=== PATIENT | female | born 1945 | race Caucasian/White ===

== ENCOUNTER 2021-05-18 11:09 | Outpatient (REF) | payer MEDICARE, SELFPAY ==
--- NOTE | ~2021-05-18 | XR_ITS ---
EXAMINATION: XR KNEE, LEFT CLINICAL INFORMATION: Left knee pain. COMPARISON: 07/20/2016 left knee radiographs TECHNIQUE: Four views of the left knee. FINDINGS: Mild medial femoral-tibial and patellofemoral joint space narrowing is seen. There is no acute fracture, dislocation or joint effusion. Mild prepatellar soft tissue swelling is seen. XR/XR knee LT 4V IMPRESSION: Mild degenerative joint changes are similar to the previous study suggesting osteoarthritis. Mild prepatellar soft tissue swelling may be normal for the patient or could be traumatic. Correlate with physical exam.
[2021-05-18 12:14] LABS: MANUAL DIFF FLAG NO
[2021-05-18 12:19] LABS: Basophils Percent Auto 0.5 % (0-2); Eosinophils Absolute Auto 0.2 X10*3/uL (0.0-0.4); Eosinophils Percent Auto 3.3 % (0-4); Hematocrit 40.7 % (37-47); Imm Gran Abs Auto 0.03 X10*3/uL (0.00-0.03); Imm Gran Pct Auto 0.5 % (0.0-0.4); Lymphocytes Absolute Auto 1.3 X10*3/uL (1.2-4.9); Lymphocytes Percent Auto 21.7 % (20-40); Mean Corpuscular HGB Conc 31.9 g/dl (31.0-35.0); Mean Corpuscular Hemoglobin 28.4 pg (27.0-33.0); Mean Corpuscular Volume 88.9 fL (80-98); Mean Platelet Volume 10.2 fL (9.4-12.3); Monocytes Absolute Auto 0.7 X10*3/uL (0.1-1.2); Monocytes Percent Auto 11.2 % (2-11); Neutrophils Absolute Auto 3.6 X10*3/uL (2.0-8.3); Neutrophils Percent Auto 62.8 % (45-73); Platelet Count 206 X10*3/uL (160-400); Red Blood Count 4.58 X10*6/uL (4.20-5.50); Red Cell Distribution Width 13.4 % (11.0-16.0); White Blood Count 5.8 X10*3/uL (4.8-10.8)
[2021-05-18 12:43] LABS: Alanine Aminotransferase 16 U/L (0-31); Alkaline Phosphatase 59 U/L (39-117); Anion Gap 11 (12-20); Aspartate Amino Transferase 16 U/L (5-31); Bilirubin Total 0.5 mg/dL (0.0-1.0); Blood Urea Nitrogen 23 mg/dL (9-16); Calcium 9.5 mg/dL (8.4-10.2); Carbon Dioxide 29 mmol/L (22-29); Chloride 107 mmol/L (96-108); Estimated Glomerular Filt Rate > 60; Glucose Random 93 mg/dL (60-115); Potassium 5.3 mmol/L (3.3-5.1); Sodium 142 mmol/L (135-145); Total Protein 6.5 g/dL (6.5-8.0)
== END 2021-05-18 11:10 | disposition home or self-care (01) ==
LOC: HO.XRAY 11:09
PROVIDERS: PCP Family Medicine; Visit Provider Family Medicine
DX: R53.83 Other fatigue (principal); M25.562 Pain in left knee
CPT/HCPCS: 36415; 73564; 80053; 85025

== ENCOUNTER 2022-04-18 06:26 | Day surgery (SDC) | payer MEDICARE, SELFPAY ==
[2022-04-12 14:58] VITALS: BMI 30.2
--- NOTE | 2022-04-15 10:40 | HO.ANESPROP2 ---
Documented by User: Nimco Mclean NP 04/15/22 10:41 HPI - Anesthesia Eval Consult details Narrative: 76yo F for Colonoscopy [facility] Past Medical History Medical History Arm fracture, left DJD (degenerative joint disease) History of scoliosis Hx of gastroesophageal reflux (GERD) Surgical History Surgical History History of cataract extraction Hx of colonoscopy Hx of hysterectomy Social History Social History Patient Tobacco Use Status: Never used Tobacco Use of substances other than those prescribed or required for medical reasons: No Are you DNR?: No Advance Directives: No Advance Directives Information Provided: Yes Meds Allergies Allergy/AdvReac Type Severity Reaction Status Date / Time No Known Allergies Allergy Verified 04/18/22 07:09 Home Medications Medication Instructions Recorded Confirmed Last Taken Type gabapentin 300 mg capsule 300 mg PO DAILY 04/12/22 04/12/22 Unknown History magnesium 04/12/22 Unknown History Exam Exam Date and Time: April 15, 2022 1040 Height,Weight and Vital Signs: Height 5 ft 2.5 in Weight 76.204 kg Assessment and Plan Assessment Anesthesia Assessment: Chart Reviewed Documented by User: Tosha Nicole MD 04/18/22 07:31 [facility] Past Medical History Medical History Arm fracture, left DJD (degenerative joint disease) History of scoliosis Hx of gastroesophageal reflux (GERD) Surgical History Surgical History History of cataract extraction Hx of colonoscopy Hx of hysterectomy History of Problems with Anesthesia: No Social History Social History Patient Tobacco Use Status: Never used Tobacco Use of substances other than those prescribed or required for medical reasons: No Are you DNR?: No Advance Directives: No Advance Directives Information Provided: Yes Meds Allergies Allergy/AdvReac Type Severity Reaction Status Date / Time No Known Allergies Allergy Verified 04/18/22 07:09 Home Medications Medication Instructions Recorded Confirmed Last Taken Type gabapentin 300 mg capsule 300 mg PO DAILY 04/12/22 04/12/22 Unknown History magnesium 04/12/22 Unknown History Exam Airway Mallampati Class: II TM Dist: >3cm Neck ROM: Full Loose/Missing/Broken Teeth: No Heart: RRR Lungs: TA Assessment and Plan Assessment Anesthesia Assessment: Anesthesia Plan Discussed Final Anesthetic Review History of Problems with Anesthesia: No NPO: Yes ASA Class: II Final Preanesthetic Review: Meds/Allgs Chart Reviewed, Consent Obtained/Reviewed and Anes Risks/Benef Reviewed Patient Risk: Low Procedure Risk: Low Anesthetic Plan Anesthetic Plan: MAC: Disposition: Standard PACU
[2022-04-18 07:03] VITALS: BMI 29.7
[2022-04-18 07:07] VITALS: BP 123/59; PULSE 67; RESP 16; TEMP 36.6; O2SAT 98
[2022-04-18 08:38] VITALS: BP 122/64; PULSE 76; RESP 16; TEMP 37.2; O2SAT 97
--- NOTE | 2022-04-18 08:44 | P.BOP_ITS ---
Brief Operative Note Date of Service: 04/18/22 Pre-op diagnosis: Screening Post-op diagnosis: other (Rectal polyp) Procedure: Colonoscopy to the cecum with hot snare polypectomy Surgeon: Nicholas Ramos Anesthesia: MAC Was an Client Service Associate used for this Procedure?: No Estimated blood loss (mL): 0 Pathology: other (A. Distal rectal polyp) Condition: stable Disposition: PACU
[2022-04-18 08:53] VITALS: BP 126/64; PULSE 67; RESP 16; TEMP 36.6; O2SAT 96
[2022-04-18 09:08] VITALS: BP 129/58; PULSE 64; RESP 16; TEMP 36.4; O2SAT 97
[2022-04-18 09:23] VITALS: BP 132/62; PULSE 67; RESP 16; O2SAT 97
--- NOTE | 2022-04-18 20:17 | OP_ITS ---
SURGEON: Nicholas Ramos MD INDICATIONS: The patient presents for evaluation of colorectal cancer screening. Full consent was obtained from her for this, including risks of bleeding and perforation. PREOPERATIVE DIAGNOSIS: Colorectal cancer screening. POSTOPERATIVE DIAGNOSIS: Colorectal cancer screening, distal rectal polyp, diverticulosis, and internal hemorrhoids. PROCEDURE PERFORMED: Colonoscopy to the cecum with hot snare polypectomy. ESTIMATED BLOOD LOSS: COMPLICATIONS: ANESTHESIA: Monitored anesthesia care. ASSISTANTS: SPECIMENS: DESCRIPTION OF PROCEDURE: The patient was placed in the left lateral decubitus position. The digital rectal exam revealed no abnormalities. The Olympus video pediatric colonoscope was entered into the rectum and advanced to the cecum with the assistance of abdominal pressure. Once in the cecum, I did identify normal-appearing cecal pouch with appendiceal orifice and a normal-appearing ileocecal valve. There was transillumination of light deep in the right lower quadrant. The scope was slowly withdrawn assessing all mucosal surfaces carefully. Preparation was excellent. There was a mild amount of sigmoid diverticulosis. I did not visualize any sign of colitis nor angiodysplasia. The only polyp I visualized was in the rectum that was seen both in the forward viewing and retroflexed positions. This was an approximately 1.5 cm probable villous adenoma on a short stalk about 1 or 2 cm above the dentate line. This was removed with a hot snare polypectomy in piecemeal fashion with the smaller pieces recovered by suction and the larger piece recovered on the tip of the scope and withdrawing it from the patient. The polypectomy site appeared clean, without any sign of residual polyp nor bleeding. The remainder of the distal rectum appeared normal other than some internal hemorrhoids. The scope was withdrawn from the patient. She tolerated the procedure well and was returned to recovery area in stable condition. IMPRESSION: 1. Distal rectal polyp, status post hot snare polypectomy and removal. 2. Diverticulosis. 3. Internal hemorrhoids. PLAN: The results of the pathology will be checked. I would recommend a repeat colonoscopy in 1 or 2 years for further evaluation of the site, although based on today's exam the site did appear to be free of any residual polyp tissue. She was advised not to use any aspirin and NSAIDs for least 1 week. She will otherwise see me on a p.r.n. basis. This has been discussed with her . MD KUSHAL Zurita/MARCELLE / [id number] DIOMEDES
== END 2022-04-18 10:25 | disposition home or self-care (01) ==
PROVIDERS: PCP Family Medicine; Visit Provider Internal Medicine
PROC: 0DJD8ZZ Inspection of Lower Intestinal Tract, Via Natural or Artificial Opening Endoscopic (ICD-10-PCS; CPT 45378; principal; 2022-04-18 07:30)
DX: Z12.11 Encounter for screening for malignant neoplasm of colon (principal); D12.8 Benign neoplasm of rectum; K57.30 Diverticulosis of large intestine without perforation or abscess without bleeding; K64.8 Other hemorrhoids; Z79.899 Other long term (current) drug therapy
CPT/HCPCS: 45385; 88305

== ENCOUNTER 2022-07-26 12:01 | Outpatient (REF) | payer MEDICARE, SELFPAY ==
--- NOTE | ~2022-07-26 | XR_ITS ---
EXAMINATION: XR SHOULDER, RIGHT CLINICAL INFORMATION: Right shoulder pain status post fall. COMPARISON: None TECHNIQUE: AP external rotation, Grashey, scapular Y, and axillary views of the right shoulder. FINDINGS: The bones and soft tissues are normal. No fracture. Glenohumeral and acromioclavicular alignment is anatomic with normal joint space. No abnormal soft tissue calcifications. XR/XR shoulder RT min 2V IMPRESSION: Unremarkable right shoulder.
== END 2022-07-26 12:02 | disposition home or self-care (01) ==
LOC: HO.XRAY 12:01
PROVIDERS: PCP Family Medicine; Visit Provider Family Medicine
DX: M25.511 Pain in right shoulder (principal); Z91.81 History of falling
CPT/HCPCS: 73030

== ENCOUNTER 2024-01-15 11:47 | Outpatient (REF) | payer MEDICARE, SELFPAY ==
[2024-01-15 13:11] VITALS: BP 128/62; PULSE 67; RESP 18; TEMP 36.3; O2SAT 97
[2024-01-15 14:00] VITALS: BMI 28.0
== END 2024-01-15 11:48 | disposition home or self-care (01) ==
LOC: HO.MS 11:47
PROVIDERS: PCP Family Medicine; Visit Provider Ophthalmology
PROC: (CPT 66821; principal; 2024-01-15 13:20)
DX: H26.492 Other secondary cataract, left eye (principal)
CPT/HCPCS: 66821

== ENCOUNTER 2024-03-01 09:19 | Day surgery (SDC) | payer MEDICARE, SELFPAY ==
--- NOTE | 2024-02-28 14:40 | HO.ANESPROP2 ---
Documented by User: Nimco Mclean NP 02/28/24 14:40 HPI - Anesthesia Eval Consult details Narrative: 78yo F for [facility] Past Medical History Medical History Surgery, elective History of scoliosis DJD (degenerative joint disease) Hx of gastroesophageal reflux (GERD) Arm fracture, left Surgical History Surgical History H/O adenoidectomy History of tonsillectomy History of cataract extraction Hx of hysterectomy Hx of colonoscopy History of Problems with Anesthesia: No Social History Social History Patient Tobacco Use Status: Former Tobacco user Tobacco use type: Cigarette Use of substances other than those prescribed or required for medical reasons: No Are you DNR?: No Advance Directives: No Advance Directives Information Provided: Yes Meds Allergies Allergy/AdvReac Type Severity Reaction Status Date / Time No Known Allergies Allergy Verified 04/18/22 07:09 Home Medications ?Medication ?Instructions ?Recorded ?Confirmed ?Last Taken ?Type gabapentin 300 mg capsule 300 mg PO BEDTIME 04/12/22 04/12/22 Unknown History magnesium 04/12/22 Unknown History Assessment and Plan Assessment Anesthesia Assessment: Chart Reviewed Final Anesthetic Review History of Problems with Anesthesia: No Documented by User: Renetta Woodson MD 03/01/24 09:58 [facility] Past Medical History Medical History Surgery, elective History of scoliosis DJD (degenerative joint disease) Hx of gastroesophageal reflux (GERD) Arm fracture, left Family History Family history of problems with anesthesia: No Surgical History Surgical History H/O adenoidectomy History of tonsillectomy History of cataract extraction Hx of hysterectomy Hx of colonoscopy Social History Social History Patient Tobacco Use Status: Former Tobacco user Tobacco use type: Cigarette Use of substances other than those prescribed or required for medical reasons: No Are you DNR?: No Advance Directives: No Advance Directives Information Provided: Yes Meds Allergies Allergy/AdvReac Type Severity Reaction Status Date / Time No Known Allergies Allergy Verified 04/18/22 07:09 Home Medications ?Medication ?Instructions ?Recorded ?Confirmed ?Last Taken ?Type gabapentin 300 mg capsule 300 mg PO BEDTIME 04/12/22 04/12/22 Unknown History magnesium 04/12/22 Unknown History Assessment and Plan Assessment Anesthesia Assessment: Anesthesia Plan Discussed Final Anesthetic Review Family History of Problems with Anesthesia: No NPO: Yes ASA Class: II Final Preanesthetic Review: No Changes in Pt Med Stat, Meds/Allgs Chart Reviewed, Consent Obtained/Reviewed and Anes Risks/Benef Reviewed Patient Risk: Low Procedure Risk: Low Anesthetic Plan Anesthetic Plan: MAC: Disposition: Standard PACU
[2024-03-01 09:51] VITALS: BP 130/61; PULSE 73; RESP 16; TEMP 36.8; O2SAT 96
[2024-03-01] MEDS: Lactated Ringers 1,000 ML 100 ML IVCONT (10:04)
[2024-03-01 11:30] VITALS: BP 95/47; PULSE 61; RESP 16; TEMP 36.6; O2SAT 97
[2024-03-01 11:45] VITALS: BP 119/61; PULSE 58; RESP 16; TEMP 36.6; O2SAT 99
--- NOTE | 2024-03-01 11:46 | PM.OP ---
Brief Operative Note Date of Service: 03/01/24 Pre-op diagnosis: Screening, history of rectal polyp Post-op diagnosis: other (Rectal polyp) Procedure: Colonoscopy to the cecum and TI with hot snare polypectomy of distal rectal polyp with placement of 2 Ultra Resolution clips and marking with submucosal ink x 2. Surgeon: Nicholas Ramos MD Anesthesia: MAC Was an Chief Writer used for this Procedure?: No Estimated blood loss (mL): 0 Pathology: other (A. Distal rectal polyp) Condition: stable Disposition: PACU
--- NOTE | 2024-03-01 12:33 | OP_ITS ---
DATE OF SERVICE: 03/01/2024 SURGEON: Nicholas Ramos MD INDICATIONS: The patient presents for followup of colorectal cancer screening and personal history of a rectal tubulovillous adenoma. Full consent has been obtained from her for this, including risks of bleeding and perforation. PREOPERATIVE DIAGNOSIS: POSTOPERATIVE DIAGNOSIS: PROCEDURE PERFORMED: Colonoscopy to the cecum and terminal ileum with hot snare polypectomy, placement of 2 ULTRA Resolution clips, and marking with submucosal ink. ESTIMATED BLOOD LOSS: COMPLICATIONS: ANESTHESIA: Monitored anesthesia care. ASSISTANTS: SPECIMENS: PREOPERATIVE DIAGNOSES: Colorectal cancer screening and history of rectal tubulovillous adenoma. POSTOPERATIVE DIAGNOSES: Colorectal cancer screening, history of rectal tubulovillous adenoma, distal rectal polyp, diverticulosis, and internal hemorrhoids. DESCRIPTION OF PROCEDURE: The patient was placed in the left lateral decubitus position. The digital rectal exam revealed no abnormalities. The Smartsheet video pediatric colonoscope was then entered into the rectum and advanced to the cecum. Once in the cecum, I did identify normal-appearing cecal pouch with appendiceal orifice and a normal-appearing ileocecal valve. The terminal ileum was cannulated and appeared normal. The scope was withdrawn back in the colon. The entire cecum and ileocecal valve appeared normal. There was transillumination of light deep in the right lower quadrant. The scope was then slowly withdrawn assessing all mucosal surfaces carefully. Preparation was excellent. There was a mild amount of sigmoid diverticulosis. I did not visualize any sign of colitis nor angiodysplasias. The only polyp I visualized was in the distal rectum, seen best in the retroflexed position. This was right above the dentate line, but was approximately 2 cm in size and relatively flat. Again, this was seen best in the retroflexed position. This was removed in piecemeal fashion with hot snare polypectomy, all while in the retroflexed position. The 2 larger pieces were recovered with a retrieval net and the smaller piece was recovered by suction. Post polypectomy, the polypectomy site appeared to be free of any residual polyp and there was no bleeding. However, there was a fairly large mucosal defect. I did use 2 ULTRA Resolution clips to close the defect with good deployment and good hemostasis. I then placed a submucosal ink ирина immediately above the polypectomy site and just to the side of the polypectomy site. At the end of the procedure, there was no sign of any bleeding. The remainder of the rectum appeared normal. Internal hemorrhoids were noted in the retroflexed position as well. The scope was then withdrawn from the patient. She tolerated the procedure well and was returned to the recovery area in stable condition. IMPRESSION: 1. Distal rectal polyp. 2. Diverticulosis. 3. Internal hemorrhoids. PLAN: The results of the pathology will be checked. If there is no worrisome pathology such as carcinoma or high-grade dysplasia, then I would recommend a repeat exam within 1 year for followup. She was advised not to use any aspirin or NSAIDs for at least 2 weeks. I did recommend that she use a dose of MiraLAX every day for the next week or 2 as well to make sure there is no hard stool or straining. This has all been discussed with her . MD KUSHAL Zurita/MARCELLE / [id number] MTDD
== END 2024-03-01 12:30 | disposition home or self-care (01) ==
PROVIDERS: PCP Family Medicine; Visit Provider Internal Medicine
PROC: 0DJD8ZZ Inspection of Lower Intestinal Tract, Via Natural or Artificial Opening Endoscopic (ICD-10-PCS; CPT 45378; principal; 2024-03-01 10:30)
DX: Z12.11 Encounter for screening for malignant neoplasm of colon (principal); K62.1 Rectal polyp; K57.30 Diverticulosis of large intestine without perforation or abscess without bleeding; K64.8 Other hemorrhoids; Z86.010 Personal history of colon polyps
CPT/HCPCS: 45385; 45381; 88305; J2250; J2704

== ENCOUNTER 2025-01-10 06:10 | Day surgery (SDC) | payer MEDICARE, SELFPAY ==
[2025-01-08 14:09] VITALS: BMI 30.8
--- NOTE | 2025-01-09 11:54 | P.CONAN_ITS ---
Documented by User: Nimco Mclean NP 01/09/25 11:54 HPI - Anesthesia Eval Consult details Narrative: 79yo F for Colonoscopy [facility] Past Medical History Medical History Surgery, elective History of scoliosis DJD (degenerative joint disease) Hx of gastroesophageal reflux (GERD) Arm fracture, left Family History Family history of problems with anesthesia: No Surgical History Surgical History H/O dilation and curettage H/O adenoidectomy History of tonsillectomy History of cataract extraction Hx of hysterectomy Hx of colonoscopy (02/2024) History of Problems with Anesthesia: No Social History Social History Patient Tobacco Use Status: Former Tobacco user Tobacco use type: Cigarette Use of substances other than those prescribed or required for medical reasons: No Advance Directives: No Advance Directives Information Provided: Yes Patient : No : No Poor oral hygiene: No Meds Allergies Allergy/AdvReac Type Severity Reaction Status Date / Time No Known Allergies Allergy Verified 04/18/22 07:09 Home Medications ?Medication ?Instructions ?Recorded ?Confirmed ?Last Taken ?Type magnesium 04/12/22 Unknown History Exam Height,Weight and Vital Signs: Height 5 ft 2.5 in Weight 77.564 kg Assessment and Plan Assessment Anesthesia Assessment: Chart Reviewed Final Anesthetic Review Family History of Problems with Anesthesia: No History of Problems with Anesthesia: No Documented by User: Renetta Woodson MD 01/10/25 08:23 [facility] Past Medical History Medical History Surgery, elective History of scoliosis DJD (degenerative joint disease) Hx of gastroesophageal reflux (GERD) Arm fracture, left Surgical History Surgical History H/O dilation and curettage H/O adenoidectomy History of tonsillectomy History of cataract extraction Hx of hysterectomy Hx of colonoscopy (02/2024) Social History Social History Patient Tobacco Use Status: Former Tobacco user Tobacco use type: Cigarette Use of substances other than those prescribed or required for medical reasons: No Advance Directives: No Advance Directives Information Provided: Yes Patient : No : No Poor oral hygiene: No Meds Allergies Allergy/AdvReac Type Severity Reaction Status Date / Time No Known Allergies Allergy Verified 04/18/22 07:09 Home Medications ?Medication ?Instructions ?Recorded ?Confirmed ?Last Taken ?Type magnesium 04/12/22 Unknown History Exam Airway Mallampati Class: II TM Dist: >3cm Neck ROM: Limited Heart: rrr Lungs: cta Assessment and Plan Assessment Anesthesia Assessment: Anesthesia Plan Discussed Final Anesthetic Review NPO: Yes ASA Class: I Final Preanesthetic Review: No Changes in Pt Med Stat, Meds/Allgs Chart Reviewe d, Consent Obtained/Reviewed and Anes Risks/Benef Reviewed Patient Risk: Low Procedure Risk: Low Anesthetic Plan Anesthetic Plan: MAC: Disposition: Standard PACU
--- OUTSIDE RECORDS SUMMARY | 2025-01-09 12:05 | XMS_ITS ---
Author Organization [facility] Address [address] [place] [id number] Care Team Providers Care Green End Worker Name Role Phone Abner GALLAGHER, Ghanshyam Primary Care Provider UnavailNicholas Long [phone] Allergies No Known Allergies REASON FOR VISIT Patient presents today for a colon polyp Medications Medication SIG (Take, Route, Frequency, Duration) Notes Start Date End Date Status Magnesium 300 MG 1 capsule with a kb l Orally Once a day for 30 day(s) Active Move Free [facility] Advance - as directed Orally Active Biotin Active Multi Vitamin/Minerals Active Gabapentin 300 MG 1 capsule Orally Onc e a day for 30 day(s) Active Vital Signs Blood pressure systolic 00 mm Hg 08/15/20 24 Blood pressure diastolic 00 mm Hg 024 Height 62.5 in 08/15/2024 Weight 168 lbs 08/15/2024 BMI 30.23 kg/m2 08/15/2024 Encounters Encounter Location Date Provider Diagnosis [facility] [address] [place] [phone] 08/15/2024 Nicholas Ramos Colon cancer screeni ng Z12.11 ; Tubulovillous adenoma of rectum D12.8 and Encounter for other preprocedural examination Z01.818 Assessments Encounter Date Diagnosis (ICD Code) Assessment Notes Treatment Notes Treatment Clinical Notes Section Notes 08/15/2024 Colon cancer screening (ICD-10 - Z12.11) Overall, Andres appears quite Well. I did review the findings on her colonoscopy in February and the need for reevaluation to reinspect the area so as to be sure there is no residual polyp tissue. Full consent has been obtained from her for this, including risks of bleeding and perforation. The procedure will be done monitored anesthesia care. We did review the rationale for this regard to colorectal cancer prevention and/or early detection. She is going away to [place] for several months and the procedure will be scheduled for her in either December or January when she returns. I did advise her that if residual tissue remains, particularly right at the dentate line at the anorectal junction, she might need a surgical referral to a colorectal surgeon for further transanal removal. Andres was comfortable with this plan. Thank you again for allowing me to participate in Andres's care. I shall continue to keep you advised of her progress. 08/15/2024 Tubulovillous adenoma of rectum (ICD-10 - D12.8) Overall, Andres appears quite Well. I did review the findings on her colonoscopy in February and the need for reevaluation to reinspect the area so as to be sure there is no residual polyp tissue. Full consent has been obtained from her for this, including risks of bleeding and perforation. The procedure will be done monitored anesthesia care. We did review the rationale for this regard to colorectal cancer prevention and/or early detection. She is going away to [place] for several months and the procedure will be scheduled for her in either December or January when she returns. I did advise her that if residual tissue remains, particularly right at the dentate line at the anorectal junction, she might need a surgical referral to a colorectal surgeon for further transanal removal. Andres was comfortable with this plan. Thank you again for allowing me to participate in Andres's care. I shall continue to keep you advised of her progress. 08/15/2024 Encounter for other preprocedural examination (ICD-10 - Z01.818) Overall, Andrse appears quite Well. I did review the findings on her colonoscopy in February and the need for reevaluation to reinspect the area so as to be sure there is no residual polyp tissue. Full consent has been obtained from her for this, including risks of bleeding and perforation. The procedure will be done monitored anesthesia care. We did review the rationale for this regard to colorectal cancer prevention and/or early detection. She is going away to [place] for several months and the procedure will be scheduled for her in either December or January when she returns. I did advise her that if residual tissue remains, particularly right at the dentate line at the anorectal junction, she might need a surgical referral to a colorectal surgeon for further transanal removal. Andres was comfortable with this plan. Thank you again for allowing me to participate in Andres's care. I shall continue to keep you advised of her progress. Plan Of Treatment Future Test Test Name Order Date COLONOSCOPY 08/15/2024 Next Appt Details Follow Up: prn, Reason: Provider Name:Nicholas Ramos , 01/10/2025 07:30:00 AM, [address] [place] [address], [id number], Progress Notes * MONTEZ TYLERADOB:1945 ([age] yo F)Acc No.[id number]:08/15/2024 Progress Notes Patient:?ANDRES TYLER Provider:?Nicholas Ramos MD :1945???Age:78 Y???Sex:Female D ate:08/15/2024 Address:[address] [place] [address] [facility] Pcp:Ghanshyam Levine MD Subjective: * Chief Complaints: * ???Patient presents today fo r a colon polyp * HPI: ???incontinence:? I saw Andres in followup today in regard to her history of a distal rectal polyp and need for followup colonoscopy. ?I last saw Andres in February, at which time she underwent a followup colonoscopy in regard to the previous exam in 2021 having revealed a flat tubulovillous adenoma in the distal rectum that was removed at that time. The exam this past February revealed residual flat polypoid tissue that was again removed and shown to be both adenomatous and serrated polyp tissue with some dysplasia. There was no carcinoma. ?Since the procedure she has been feeling well. She did notice some softer than usual bowel movements after the procedure but generally her bowel movements are now regular and comfortable. She has not noticed any bleeding. She enjoys a good appetite and denies any significant heartburn or dysphagia. She denies abdominal pain, jaundice, nor unintentional weight loss. She denies any known family history of colon cancer. * ROS:?General/Constitutional:?Change in appetite?denies.?Chills?denies.?Fatigue?denies.?Ophthalmologic:?Patient denies? Negative..?ENT:?Patient denies?Negative..?Respiratory:?Patient denies?No coughing/hemoptysis..?Cardiovascular:?Patient denies? No chest pain/orthopnea..?Gastrointestinal:?Comments?See HPI for details.?Genitourinary:?Patient denies? No dysuria/hematuria..?Musculoskeletal:?Patient denies? No specific arthralgias/myalgias..?Skin:?Patient denies?No rash/pruritus..?Neurologic:?Patient denies? No headaches/seizures..?Psychiatric:?Patient denies?Negative..? * Medical History:? * Surgical History:?Hysterecto my * Hospitalization/Major Diagno stic Procedure:?No Hospitalization History. * Family History:?Father: dece ased, diagnosed with Heart disease.?Mother: .? No family history of colorectal cancer. * Social History:?Tobacco Use:?Tobacco Use/Smoking?Are you a: nonsmoker.?Drugs/Alcohol:?Alcohol Screen?Points: 4, Interpretation: Positive.?Miscellaneous:?Marital status: . Occupation: retired RN. ???Nonsmoker; 1-2 drinks per day. * Medications:?TakingBiotin Mo ve Free [facility] Advance - Tablet as directed Orally Magnesium 300 MG Capsule 1 capsule with a meal Orally Once a dayGabapentin 300 MG Capsule 1 capsule Orally Once a dayMulti Vitamin/Minerals Medication List reviewed and reconciled with the patientTaking Biotin Taking Move Free [facility] Advance - Tablet as directed Orally Taking Magnesium 300 MG Capsule 1 capsule with a meal Orally Once a dayTaking Gabapentin 300 MG Capsule 1 capsule Orally Once a dayTaking Multi Vitamin/Minerals Medication List reviewed and reconciled with the patient * Allergies:?N.K.D.A.yes[Aller gies Verified] Objective: * Vitals:?Wt: 168 lbs, Ht: 62. 5 in, BMI:30.23 Index, BP: 00/00 mm Hg. * Examination: ???General Examination: ?GENERAL APPEARANCE:?pleasant, well nourished, well developed, in no acute distress.?EYES:?sclera non-icteric.?ORAL CAVITY:?mucosa moist.?NECK/THYROID:?no cervical lymphadenopathy, neck supple.?SKIN:?nonjaundiced, no spider angiomata..?HEART:?S1, S2 normal.?LUNGS:?clear to auscultation bilaterally.?ABDOMEN:?normal bowel sounds, no guarding or rigidity, no hepatosplenomegaly, no masses palpable, soft, nontender, nondistended..?EXTREMITIES:?no edema.?NEUROLOGIC:?alert and oriented.? Assessment: * Assessment: 1.?Tubulovillous adenoma of rectum - D12.8 (Primary)?2.?Colon cancer screening - Z12.11?3.?Encounter for other preprocedural examination - Z01.818? Overall, Andres appears quite Well. I did review the findings on her colonoscopy in February and the need for reevaluation to reinspect the area so as to be sure there is no residual polyp tissue. Full consent has been obtained from her for this, including risks of bleeding and perforation. The procedure will be done monitored anesthesia care. We did review the rationale for this regard to colorectal cancer prevention and/or early detection. She is going away to [place] for several months and the procedure will be scheduled for her in either December or January when she returns. I did advise her that if residual tissue remains, particularly right at the dentate line at the anorectal junction, she might need a surgical referral to a colorectal surgeon for further transanal removal. Andres was comfortable with this plan. Thank you again for allowing me to participate in Andres's care. I shall continue to keep you advised of her progress. Plan: * Treatment: 2.?Colon cancer screening?Procedure: COLONOSCOPY (Ordered for 08/15/2024)* with MACsched for 01/10/25 at 9:00 ammiralax * Procedure Codes:?1036F TOBAC CO NON-[id number] BP SCR NOT PRFRM REC REASON NOS * Preventive Medicine:? ??Counseling:?Care goal follow-up plan:?Above Normal BMI Follow-up?Giving encouragement to exercise,?BMI management provided?Yes.? ??Urinary Incontinence:?Urinary Incontinence?Assessment:?Absent urgency,?Plan of care documented:?No, reason not specified.? ??Screenings:?Fall Risk Screening?Fall Risk Assessment:?No falls in the past year,?Screening:?No falls in the past year,?Assessment:?Not performed, no reason specified,?Plan of Care:?Not documented, no reason specified.? * Follow Up:?prn * * Sign off status: Completed true * Provider:?Nicholas Ramos MD Date:? 024 Generated for Caty chan/Neftali/Hairitting on:?01/09/2025 12:05 PM EDT History and Physical Notes * HPI (History of Present Illness) Category Sub-Category Detail Notes Category Not es incontinence I saw Andres in followup today in regard to her history of a distal rectal polyp and need for followup colonoscopy. I last saw Andres in February, at which time she underwent a followup colonoscopy in regard to the previous exam in 2021 having revealed a flat tubulovillous adenoma in the distal rectum that was removed at that time. The exam this past February revealed residual flat polypoid tissue that was again removed and shown to be both adenomatous and serrated polyp tissue with some dysplasia. There was no carcinoma. Since the procedure she has been feeling well. She did notice some softer than usual bowel movements after the procedure but generally her bowel movements are now regular and comfortable. She has not noticed any bleeding. She enjoys a good appetite and denies any significant heartburn or dysphagia. She denies abdominal pain, jaundice, nor unintentional weight loss. She denies any known family history of colon cancer. Examination Category Sub-Category Detail Notes Category Not es General Examination GENERAL APPEARANCE: pleasant , well nourished, well developed, in no acute distress EYES: sclera non-icteric NECK/THYROID: no cervical lymphade nopathy, neck supple HEART: S1, S2 normal LUNGS: clear to auscultatio n bilaterally ABDOMEN: normal bowel sounds, no guarding or rigidity, no hepatosplenomegaly, no masses palpable, soft, nontender, nondistended. NEUROLOGIC: alert and oriented SKIN: nonjaundiced, no spi domingo angiomata. EXTREMITIES: no edema ORAL CAVITY: mucosa moist
--- OUTSIDE RECORDS SUMMARY | 2025-01-09 12:05 | XMS_ITS | Continuity of Care Document ---
Author Organization [facility] Address [address] [place] [address]- Care Team Providers Care Armament Aircraft Mechanic Name Role Phone Abner GALLAGHER, Ghanshyam Hawk Primary Care Physician [id number] Date(s): 12/04/24 - 01/03/25 [facility] [address] [place] [phone] Encounter Type: Triage Allergies, Adverse Reactions, Alerts No Known Allergies Immunizations Given and Recorded Vaccine Date Status Refusal Reason tetanus-diphtheria toxoids (Td) 1 09/19/07 Given 1Admin Note: VIS FORM GIVEN Medications Fish Oil 0 Refills, 08/20/08 3:28:31 PM EST Start Date: 08/20/08 Status: Ordered Repeat number: 1 Glucosamine By Mouth, 0 Refills, Maintenance, 07/11/18 3:35:39 PM EDT Start Date: 07/11/18 Status: Ordered Repeat number: 1 Magnesium Amino Acids Chelate By Mouth, 0 Refills, Maintenance, 12/24/24 10:57:00 AM EDT, Partial fill upon patient request if the prescription is for a schedule II opioid drug. Start Date: 12/24/24 Status: Ordered Repeat number: 1 Multi-Day Plus Minerals 1 tablet, By Mouth, Daily, 0 Refills, 09/19/07 10:11:11 AM EST Start Date: 09/19/07 Status: Ordered Repeat number: 1 Problem List Condition Confirmation Course Effective Dates Status H ealth Status Informant Diverticular disease of colon Confirmed Active Tubulovillous adenoma of rectum Confirmed Active Social History Social History Type Response Smoking Status Former smoker; Other : in college; entered on: 02/15/17 Sex Sex Representation Female (finding) Patient Care team information Care Team Personnel Name: Abner GALLAGHER, Ghanshyam Hawk Position: Reference Physician Member Role: PCP [address]: [address] [place] [address], [address] [place] [phone] Telecom: Care Team Related Persons Name: SHANNON TYLER Insurance Providers Guarantor name: ANDRES NAYELI Health Plan Information #: 1 Payer: [facility] MEDIC[facility] ADV HMO Member Number: NA Policy Number: NA Group Number: [id number]
--- OUTSIDE RECORDS SUMMARY | 2025-01-09 12:05 | XMS_ITS ---
Author Organization [facility] Address [address] [place] [phone] Care Team Providers Care Lime Puller Name Role Phone Abner GALLAGHER, Ghanshyam Primary Care Provider Unavailab Nicholas Mota [phone] REASON FOR VISIT colon polyp Encounters Encounter Location Date Provider Diagnosis [facility] [address] [place] [phone] 08/08/2024 Nicholas Ramos Plan Of Treatment Next Appt Details Provider Name:Nicholas Ramos , 01/10/2025 07:30:00 AM, [address] [place] [address] , [place], [place], [phone], Progress Notes * MONTEZ TYLERADOB:1945 (7 0 yo F)Acc No.[id number]:08/08/2024 Progress Notes Patient:?ANDRES TYLER Provider:?Nicholas Ramos MD :1945???Age:78 Y???Sex:Female D ate:08/08/2024 Address: [place], [place] Pcp:Ghanshyam Levine MD Subjective: * Chief Complaints: * ???1. Colon polyp. * Medical History:? Objective: * Vitals:? Assessment: Plan: * Treatment: * * The named appointment provid er may or may not be the originator of this progress note, and it is not deemed complete until electronically signed by the appointment provider. Sign off status: Pending * Provider:?Nicholas Ramos MD Date:? 024 Generated for Caty chan/Neftali/Tony on:?01/09/2025 12:05 PM EDT
--- OUTSIDE RECORDS SUMMARY | 2025-01-09 12:06 | XMS_ITS | Patient Health Record ---
Author Organization [facility] [place] Address [address] [place] [address] Care Team Providers Care Cardiac Rn Name Role Phone Ghanshyam Levine MD Primary Care Provider Unavailab Karlie Christianson Unavailable [phone] Allergies No Known Allergies Reason For Referral No Information Medications Medication SIG (Take, Route, Frequency, Duration) Notes Start Date End Date Status Glucosamine Chondr 500 Complex Unknown CoQ-10 Unknown Custom Orthotics as directed metatars algia left, osteoarthritis left foot metatarsal offloading 07/05/2019 Unkno wn Ibuprofen 800 MG 1 tablet Orally Thre e times a day for 30 day(s) 03/17/2020 Unknow n Magnesium Active Biotin Active Gabapentin 300mg three times a day or ally daily for 5 days 07/05/2019 Active Multivitamin Active Baby Aspirin 07/05/2019 Active Social History Tobacco Use: Social History Observation Description Date Details (start date - stop date) Former Smoker NA - NA Tobacco Use/Smoking Question Answer Notes Are you a: former smoker Additional Findings: Tobacco Non-User Current no n-smoker Alcohol Screen Question Answer Notes Did you have a drink contain ing alcohol in the past year? Yes How often did you have a dri nk containing alcohol in the past year? 4 or more times a week (4 points) Points 4 Interpretation Positive Tobacco use other than smoking: Question Answer Notes Are you an other tobacco user? No Problems Problem Type SNOMED Code ICD Code Onset Dates Problem Status W/U Status Risk Notes Problem [id number] Hammer toe of left foot (M20.42) Active confirmed Plan Of Treatment Pending Test Test Name Order Date X ray : Foot, left 3V 07/05/2019 X ray : Foot, left 3V 03/17/2020 Next Appt Details Provider Name:Karlie naik, 02/19/2025 10:00:00 AM, [address] [place], [phone], Insurance Providers Payer Name Payer Address Payer Phone Subscriber Number Group Number Insured Name Patient Relationship to Insured Coverage Start Date Coverage End Date [employer] [place] [employer]age [address] [place] [address] [phone] [id number] Elly Wrad Self - patient is the insured Medical (General) History Medical History History ICD Code osteoarthritis Cataracts Lyme disease Warts Chicken pox Transfusions Back,Hip,and Knee pain Broken bones Measles Mumps Surgical History Surgery Date(Month/Year) hysterectomy 1989
--- OUTSIDE RECORDS SUMMARY | 2025-01-09 12:06 | XMS_ITS | Patient Health Record ---
Author Organization [facility] Address [address] [place] [address] Care Team Providers Care Floor Covering Installer Name Role Phone Abner GALLAGHER, Ghanshyam Primary Care Provider Unavailab Nicholas Mota Unavailable [phone] Allergies No Known Allergies Results Component Value Reference Range Notes Pathology Reviewed date:03/19/2024 03:31:25 PM Interpretation: Performing Lab:[facility], [address] [place] [phone] Notes/Report: Name: Andres Ward ge/Sex: 78/F : 1945 Unit#: [id number] Attend Dr: Nicholas Ramos Re03/01/24 Status : [facility] Location: [facility] Disch: SPEC : [id number] RECD : 03/01/24-115 STATUS: CATHIE PAVON NUM: [id number] MAYUR: 03/01/24-[address] [facility] [address]: Nicholas Ramos ENTERED: 03/01/24-12 04 SP TYPE: Surgical OTHR DR: Ghanshyam Levine MD ORDERED: HE Stain/3, Gross Micro L4 Diagnosis Colon, distal rectal polyp: Tubular adenoma with serrated features and foci suspicious for high-grade dyspl anna (see comment). Comment: There is no invasion and this adenoma lacks metastatic potential. Endoscopic follow-up is warrant ed to ensure there is no residual lesion. Clinical History Pre-Op Dx: Screening Post-Op Dx: Rectal p olyp, diverticulosis, hemorrhoids Microscopic Description Microscopic sections reviewed. Material Received Distal rectal polyp Gross Description Received in formalin labeled ?distal rectal polyp? are 3 congested and hemorrhagic, yun-pink and red-maroon irreg ular, papular and lobular-polypoid tissue fragments measuring 0.6, 0.9 and 1[address] dimension. The resected base of each is inked and each is sectioned and entirely submitt ed in cassettes A1, A2 and A3, respectively. CEDS Copies To: Ghanshyam Levine MD [address] [place] [address] . [address] [place] [address] Nicholas Ramos [address] [place] [address] [address] [place] [address] CONTINUED ON NEXT PAGE Name: Andres Ward [place] ge/Sex: 78/F : 1945 Unit#: [id number] Attend Dr: Nicholas Ramos Re03/01/24 Status : [facility] Location: [facility] Disch: SPEC : [id number] RECD : 03/01/24-1152 STATUS: CATHIE PAVON NUM: [id number] MAYUR: 03/01/24-[address] [facility] [address]: Nicholas Ramos ENTERED: 03/01/24- 04 SP TYPE: Surgical OTHR DR: Ghanshyam Levine MD ORDERED: SARWAT Ansari/3, Binta Micro L4 Signed (si gnature on file) Shana Addyston 03/05/24 1632 END OF REPORT Reason For Referral No Information Medications Medication SIG (Take, Route, Frequency, Duration) Notes Start Date End Date Status Magnesium 300 MG 1 capsule with a kb l Orally Once a day for 30 day(s) Active Move Free Howbuy Advance - as directed Orally Active Biotin Active Multi Vitamin/Minerals Active Gabapentin 300 MG 1 capsule Orally Onc e a day for 30 day(s) Active Immunizations Vaccine Route Administration Date Status Comme nts Influenza Unknown 08/10/2021 Administered Problems Problem Type SNOMED Code ICD Code Onset Dates Problem Status W/U Status Risk Notes Problem Colon cancer screening (093580873) Colon cancer screening (Z12.11) Active confirmed Problem Pre-procedure evaluation check (750777897) Encounter for other preprocedural examination (Z01.818) Active confirmed Problem Change in bowel habit (91993131) Change in bowel habits (R19.4) Active confirmed Problem Diverticular disease of colon (190159440) Diverticulosis of large intestine without perforation or abscess without bleeding (K57.30) Active confirmed Problem Diverticulosis of sigmoid colon (612648421) Diverticulosis of sigmoid colon (K57.30) Active confirmed Problem Tubulovillous adenoma of rectum (683991584) 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) Active confirmed Vital Signs Blood pressure diastolic 00 mm Hg 08/15/2024 Height 62.5 in 08/15/2024 Blood pressure systolic 00 mm Hg 08/15/2024 Weight 168 lbs 08/15/2024 BMI 30.23 kg/m2 08/15/2024 Encounters Encounter Location Date Provider Diagnosis [facility] [address] [place] [phone] 03/01/2024 Nicholas Ramos Encounter for screen ing colonoscopy Z12.11 ; Rectal polyp K62.1 ; Diverticulosis of large intestine without perforation or abscess without bleeding K57.30 and Other hemorrhoids K64.8 [facility] [address] [facility] [address] [place] [phone] 01/18/2024 Nicholas Ramos Colon cancer screeni ng Z12.11 ; Encounter for other preprocedural examination Z01.818 and Tubulovillous adenoma of rectum D12.8 [facility] [address] [facility] [address] [place] [phone] 08/15/2024 Nicholas Ramos Colon cancer screeni ng Z12.11 ; Tubulovillous adenoma of rectum D12.8 and Encounter for other preprocedural examination Z01.818 [facility] [address] [facility] [address] [place] [phone] 01/18/2024 Nicholas Ramos [facility] [address] [place] [phone] 03/18/2024 Nicholas Ramos Assessments Encounter Date Diagnosis (ICD Code) Assessment Notes Treatment Notes Treatment Clinical Notes Section Notes 03/01/2024 Encounter for screening colonoscopy (ICD-10 - Z12.11) 03/01/2024 Rectal polyp (ICD-10 - K62.1) 01/18/2024 Colon cancer screening (ICD-10 - Z12.11) Overall, Andres appears quite well. Given the size, histology, and relatively flat nature of the polyp removed in 2021, I did recommend she undergo a followup colonoscopy for further screening and be sure no residual polyp tissue remains at that site. We did review the rationale for that regard to colon cancer prevention. Full consent was obtained for the colonoscopy, including risks of bleeding and perforation. The procedure will be done with monitored anesthesia care. Andres was comfortable with this plan. Thank you again for allowing me to participate in Andres's care. I shall continue to keep you advised of her progress. 01/18/2024 Encounter for other preprocedural examination (ICD-10 - Z01.818) Overall, Andres appears quite well. Given the size, histology, and relatively flat nature of the polyp removed in 2021, I did recommend she undergo a followup colonoscopy for further screening and be sure no residual polyp tissue remains at that site. We did review the rationale for that regard to colon cancer prevention. Full consent was obtained for the colonoscopy, including risks of bleeding and perforation. The procedure will be done with monitored anesthesia care. Andres was comfortable with this plan. Thank you again for allowing me to participate in Andres's care. I shall continue to keep you advised of her progress. 08/15/2024 Colon cancer screening (ICD-10 - Z12.11) [...] early detection. She is going away to [place] for several months and the procedure will [...] early detection. She is going away to [place] for several months and the procedure will [...] to keep you advised of her progress. 03/01/2024 Diverticulosis of large intestine without perforation or abscess without bleeding (ICD-10 - K57.30) 01/18/2024 Tubulovillous adenoma of rectum (ICD-10 - D12.8) Overall, Andres appears quite well. Given the size, histology, and relatively flat nature of the polyp removed in 2021, I did recommend she undergo a followup colonoscopy for further screening and be sure no residual polyp tissue remains at that site. We did review the rationale for that regard to colon cancer prevention. Full consent was obtained for the colonoscopy, including risks of bleeding and perforation. The procedure will be done with monitored anesthesia care. Andres was comfortable with this plan. Thank you again for allowing me to participate in Andres's care. I shall continue to keep you advised of her progress. 08/15/2024 Encounter for other preprocedural examination (ICD-10 - Z01.818) Overall, Andres appears quite Well. I did [...] early detection. She is going away to [place] for several months and the procedure will [...] to keep you advised of her progress. 03/01/2024 Other hemorrhoids (ICD-10 - K64.8) Plan Of Treatment Future Test Test Name Order Date COLONOSCOPY 04/19/2012 COLONOSCOPY 02/02/2022 COLONOSCOPY 01/18/2024 COLONOSCOPY 08/15/2024 Next Appt Details Provider Name:Nicholas Ramos , 01/10/2025 07:30:00 AM, [address] [place] [address] , [place], [place], [phone], Insurance Providers Payer Name Payer Address Payer Phone Subscriber Number Group Number Insured Name Patient Relationship to Insured Coverage Start Date Coverage End Date [facility] [address] [place] [phone] [id number] ANDRES WARD Self - patient is the insured Medical (General) History Medical History History ICD Code Colonoscopy 10-22-2001 with a hyperplastic polyp and a negative colonoscopy in 04/2012 Denies [place],DM,CVA,Lung disease,renal dise ase Broken left arm in 12/2021 Colonoscopy in 03/2022 with r emoval of an approximately 1.5 cm relatively flat tubulovillous adenoma from the distal rectum Colonoscopy in February of 2024 with removal of further distal rectal polyp tissue with a component of both adenomatous and serrated tissue with an area of high-grade dysplasia. There was no carcinoma. The area was marked with submucosal ink as well. Surgical History Surgery Date(Month/Year) Hysterectomy
[2025-01-10 06:49] VITALS: BMI 29.3
[2025-01-10 06:55] VITALS: BP 120/62; PULSE 77; RESP 16; TEMP 36.6
[2025-01-10] MEDS: Lactated Ringers 1,000 ML 100 ML IVCONT (07:06)
[2025-01-10 08:48] VITALS: BP 107/49; PULSE 67; RESP 16; TEMP 36.6; O2SAT 98
--- NOTE | 2025-01-10 08:51 | PM.OP ---
Brief Operative Note Date of Service: 01/10/25 Pre-op diagnosis: Rectal polyp Post-op diagnosis: other (Same) Procedure: Colonoscopy to the cecum with hot snare polypectomy Surgeon: Nicholas Ramos MD Anesthesia: MAC Was an Distribution Coordinator used for this Procedure?: No Estimated blood loss (mL): 2.0 Pathology: other (A. Distal rectal polyp) Condition: stable Disposition: PACU
[2025-01-10 09:03] VITALS: BP 101/50; PULSE 61; RESP 16; O2SAT 98
[2025-01-10 09:13] VITALS: BP 109/44; PULSE 61; RESP 18; TEMP 36.1; O2SAT 98
--- NOTE | 2025-01-10 09:23 | OP_ITS ---
DATE OF SERVICE: 01/10/2025 SURGEON: Nicholas Ramos MD INDICATIONS: The patient presents for followup of a distal rectal polyp. Full consent has been obtained from her for this, including risks of bleeding and perforation. PREOPERATIVE DIAGNOSIS: Distal rectal polyp. POSTOPERATIVE DIAGNOSIS: PROCEDURE PERFORMED: Colonoscopy to cecum with hot snare polypectomy. ESTIMATED BLOOD LOSS: COMPLICATIONS: ANESTHESIA: Monitored anesthesia care. ASSISTANTS: SPECIMENS: POSTOPERATIVE DIAGNOSES: Distal rectal polyp, diverticulosis and internal hemorrhoids. DESCRIPTION OF PROCEDURE: The patient was placed in left lateral decubitus position. The digital rectal exam revealed no abnormalities. The Olympus video pediatric colonoscope was entered into the rectum advanced to the cecum. Advancement to the cecum was somewhat difficult. However, once in the cecum, I did identify normal-appearing cecal pouch with appendiceal orifice and a normal-appearing ileocecal valve. The entire cecum and ileocecal valve appeared normal. The ileocecal valve did appear somewhat lipomatous as well. The scope was then slowly withdrawn assessing all mucosal surfaces carefully. Preparation was excellent. There was a moderate amount of sigmoid diverticulosis. I did not visualize any sign of colitis nor angiodysplasia. The only polyp I visualized was seen in the rectum, primarily in the retroflexed position. The polyp was approximately 1.5 cm and encroaching the dentate line. It was at the site of the previous polypectomy as visualized by the scarring and the 2 previously placed submucosal ink motley. I did remove the entire polyp tissue with hot snare polypectomy in piecemeal fashion. Portions of the polypectomy site were cauterized with the tip of the snare as well. Pieces of the polyp were recovered either by suction or withdrawing on the tip of the scope. The polypectomy site was carefully inspected after the polypectomy and irrigated copiously. There did not appear to be any sign of residual polyp tissue nor any bleeding. Given its location, I opted not to place a clip on it. The scope was then withdrawn from the patient. She tolerated the procedure well and was returned to recovery area in stable condition. IMPRESSION: 1. Distal rectal polyp. 2. Diverticulosis. 3. Internal hemorrhoids. PLAN: The results of the pathology will be checked. Although she is 79 years old. I would still recommend a followup colonoscopy within 1 year to reinspect that polypectomy site. If tissue continues to remain at that area, we may need a surgical evaluation for some consideration of a transanal excision if need be. She was advised not to use any aspirin or NSAIDs for 2 weeks. I did advise her to use a stool softener for a week or 2 to prevent any need for straining. MD KUSHAL Zurita/MARCELLE / [id number] MTDD
== END 2025-01-10 09:21 | disposition home or self-care (01) ==
PROVIDERS: PCP Family Medicine; Visit Provider Internal Medicine
PROC: 0DJD8ZZ Inspection of Lower Intestinal Tract, Via Natural or Artificial Opening Endoscopic (ICD-10-PCS; CPT 45378; principal; 2025-01-10 07:30)
DX: Z12.11 Encounter for screening for malignant neoplasm of colon (principal); Z86.0101 Personal history of adenomatous and serrated colon polyps; D12.8 Benign neoplasm of rectum; K57.30 Diverticulosis of large intestine without perforation or abscess without bleeding; K64.8 Other hemorrhoids; Z79.899 Other long term (current) drug therapy
CPT/HCPCS: 45385; 88305; J2704